=== PATIENT | male | born 1985 | race Hispanic/Latino ===

== ENCOUNTER 2020-02-04 17:46 | Emergency (ER) | payer BC, SELFPAY ==
[2020-02-04] MEDS ORDERED: ACETAMINOPHEN 500 MG TAB ONE (19:33)
[2020-02-04] MEDS ORDERED: CEFTRIAXONE/SWI 1gm 1 GM/10 ML SYR ONE (19:33)
[2020-02-04] MEDS ORDERED: NA CHLORIDE 0.9% 3,000 ML ONE (19:34)
[2020-02-04 19:46] LABS: Absolute Lymphocytes (CBC) 2.4 K/uL (0.7-4.9); Basophils % 0.5 % (0-1.3); Hematocrit 47.4 % (39.6-49.0); Lymphocytes % 11.8 % (15.3-44.8); MPV 7.8 fL (7.6-11.3); RBC Red Blood Cell Count 5.22 M/uL (4.33-5.43)
[2020-02-04 19:57] LABS: Protime INR 1.25
[2020-02-04 19:58] LABS: Urine Blood 3+ (NEG); Urine Glucose NEGATIVE (NEG); Urine Protein 2+ (NEG); Urine Specific Gravity 1.025 (1.005-1.030)
[2020-02-04 20:00] LABS: Albumin 3.8 g/dL (3.4-5.0); Bilirubin Direct 0.1 mg/dL (0-0.2); Bilirubin Total 0.8 mg/dL (0.2-1.0); Potassium 3.5 mmol/L (3.5-5.1); Protein, Total 8.2 g/dL (6.4-8.2)
[2020-02-04] MEDS ORDERED: FENTANYL CITR 100 MCG/2 ML ONE (20:01)
--- NOTE | 2020-02-04 20:03 | RAD REPORT ---
EXAM DESCRIPTION: CT - Stone Protocol - 02/04/2020 7:50 pm CLINICAL HISTORY: Abdominal pain. Dysuria COMPARISON: None. TECHNIQUE: Computed axial tomography of the abdomen pelvis was obtained without oral or IV contrast. Lack of IV and oral contrast limits evaluation of solid organs, bowel, and vessels. Coronal reformat duong images were obtained and reviewed. All CT scans are performed using dose optimization technique as appropriate and may include automated exposure control or mA/KV adjustment according to patient size. FINDINGS: A renal calculus is not seen. An ureteral calculus is not noted. A bladder calculus is not present. Stranding is present adjacent to the right ureter, bladder and seminal vesicles The liver, spleen, pancreas and adrenals appear grossly normal There is no evidence of diverticulitis. The appendix appears normal. Small umbilical hernia IMPRESSION: Negative for a genitourinary calculus Stranding adjacent to the right ureter, seminal vesicles and bladder probably indicating infection/in flammation
[2020-02-04 20:05] LABS: Urine Bacteria 20-50 /HPF (NONE SEEN); Urine Mucus 2+ /HPF (NONE SEEN); Urine RBC TNTC /HPF (NONE SEEN)
--- NOTE | 2020-02-04 21:21 | ER ---
Nurse's Notes [facility] Name: Flakito Nuñez Jr Age: 34 yrs Sex: Male : 1985 Arrival Date: 02/04/2020 Time: 17:48 Bed 7 Private MD: Diagnosis: Urinary tract infection, site not specified Presentation: 02/03 18:33 Chief complaint: Patient states: Burning with urination, urinary urgency and frequency, ca1 lower abdominal pain, testicular pain started yesterday. Got worse today. Fever started today. Did not take Tylenol or Motrin today. Coronavirus screen: Client denies travel out of the [place] in the last 14 days. fever, Client presents with at least one sign or symptom that may indicate coronavirus-19. Standard/surgical mask placed on the client. Provider contacted for isolation considerations. Ebola Screen: Patient negative for fever greater than or equal to 101.5 degrees Fahrenheit, and additional compatible Ebola Virus Disease symptoms Patient denies exposure to infectious person. Patient denies travel to an Ebola-affected area in the 21 days before illness onset. No symptoms or risks identified at this time. Initial Sepsis Screen: Does the patient meet any 2 criteria? Temp <36.0*C (96.8*F)) or > 38.3*C (100.9*F). HR > 90 bpm. Yes Does the patient have a suspected source of infection? Yes: Dysuria/Frequency/Urgency/UTI. Risk Assessment: Do you want to hurt yourself or someone else? Patient reports no desire to harm self or others. Onset of symptoms was February 03, 2020. 18:33 Method Of Arrival: Ambulatory ca1 18:33 Acuity: KEVON 2 ca1 Historical: - Allergies: 18:37 No Known Allergies; ca1 - Home Meds: 18:37 None [Active]; ca1 - PMHx: 18:37 None; ca1 - PSHx: 18:37 None; ca1 - Immunization history:: Adult Immunizations up to date, Flu vaccine is not up to date. - Social history:: Smoking status: Patient reports the use of cigarette tobacco products, smokes one pack cigarettes per day. Screenin:28 Abuse screen: Denies threats or abuse. Denies injuries from another. Nutritional rv screening: No deficits noted. Tuberculosis screening: No symptoms or risk factors identified. Fall Risk None identified. Assessment: 19:00 General: Appears in no apparent distress. Behavior is calm, cooperative, appropriate ll2 for age. Neuro: Level of Consciousness is awake, alert, obeys commands, Oriented to person, place, time, situation. Cardiovascular: Patient's skin is warm and dry. Respiratory: Airway is patent Respiratory effort is even, unlabored, Respiratory pattern is regular, symmetrical. GI: No signs and/or symptoms were reported involving the gastrointestinal system. EENT: No signs and/or symptoms were reported regarding the EENT system. Derm: Skin is intact, is healthy with good turgor, Skin is dry, Skin is pink, warm \T\ dry. Skin temperature is warm. Musculoskeletal: Circulation, motion, and sensation intact. Range of motion: intact in all extremities. 20:00 Reassessment: Patient and/or family updated on plan of care and expected duration. Pain ll2 level reassessed. Patient is alert, oriented x 3, equal unlabored respirations, skin warm/dry/pink. Pain: Complains of pain in left testicle and left lower quadrant. Vital Signs: 18:33 BP 107 / 63; Pulse 125; Resp 17 S; Temp 103.3; Pulse Ox 100% on R/A; Weight 113.4 kg ca1 (R); Height 5 ft. 10 in. (177.80 cm) (R); Pain 7/10; 19:29 BP 111 / 68; Pulse 115; Resp 23; Pulse Ox 99% on R/A; ea 21:11 BP 99 / 60; Pulse 107; Resp 20; Temp 100.4(O); Pulse Ox 100% ; rv 21:35 BP 112 / 62; Pulse 98; Resp 18; Pulse Ox 100% on R/A; ea 18:33 Body Mass Index 35.87 (113.40 kg, 177.80 cm) ca1 ED Course: 17:48 Patient arrived in ED. ag5 18:37 Triage completed. ca1 18:37 Arm band placed on right wrist. ca1 18:50 Talat Castillo PA is PHCP. cp 18:50 Julian Leonard MD is Attending Physician. cp 19:00 Inserted saline lock: 20 gauge in right antecubital area, using aseptic technique. rv Blood collected. 19:00 Initial lab(s) drawn, by ED staff, sent to lab. rv 19:16 Pal Bunch, RN is Primary Nurse. rv 19:29 Patient has correct armband on for positive identification. monitor and storage bin tender on. Pulse rv ox on. NIBP on. 19:50 CT Stone Protocol In Process Unspecified. EDMS 21:13 US Scrotum Testicles In Process Unspecified. EDMS 21:22 No provider procedures requiring assistance completed. rv 21:37 IV discontinued, intact, bleeding controlled, No redness/swelling at site. Pressure ll2 dressing applied. Administered Medications: 19:23 Drug: Acetaminophen 1000 mg Route: PO; rv 21:21 Follow up: Response: Temperature is decreased rv 19:23 Drug: NS 0.9% (30 ml/kg) 30 ml/kg Route: IV; Rate: bolus; Site: right antecubital; rv 19:42 Drug: Rocephin - (cefTRIAXone) 1 grams Route: IVPB; Infused Over: 30 mins; Site: right rv antecubital; 21:21 Follow up: Response: No adverse reaction; IV Status: Completed infusion rv 20:07 Drug: fentaNYL (PF) 25 mcg Route: IVP; Site: right antecubital; rv 21:20 Follow up: Response: No adverse reaction; Marked relief of symptoms; RASS: Alert and rv Calm (0) 21:19 Drug: Ibuprofen 800 mg Route: PO; rv 21:36 Follow up: Response: No adverse reaction ll2 21:19 Drug: LevaQUIN 750 mg Route: PO; rv 21:36 Follow up: Response: No adverse reaction ll2 Outcome: 21:20 Discharge ordered by . cp 21:37 Discharged to home ambulatory. ll2 21:37 Condition: stable 21:37 Discharge instructions given to patient, Instructed on discharge instructions, follow up and referral plans. medication usage, Demonstrated understanding of instructions, follow-up care, medications, Prescriptions given X 2. 21:37 Patient left the ED. ll2 Addendum: 02/07/2020 07:23 Addendum: Culture Results: Positive urine culture. No further action required. Bacteria e b sensitive to prescribed antibiotic. 02/08/2020 11:54 Addendum: COVID-19 Result: Negative result given to RN to notify pt. Notified pt of i w negative COVID 19 swab results. Pt advised that even with a negative test result they should remain in isolation until symptom free for 3 days without medication. Pt also advised to return to the ED for worsening symptoms. Signatures: Dispatcher [employer] EDCaterina Bay, RN RN Talat Rangel PA PA cp Antunez, Elena, RN RN Geneva Velez Ronaldo RN RN rv Actee, Jen RN RN Zach Nichols ag5 Chyna Reyna RN RN ll2
--- NOTE | 2020-02-04 21:21 | EDPHYS ---
Physician Documentation [facility] Name: Flakito Nuñez Jr Age: 34 yrs Sex: Male : 1985 Arrival Date: 02/04/2020 Time: 17:48 Bed 7 Private MD: ED Physician Julian Leonard HPI: 02/03 18:55 This 34 yrs old Male presents to ER via Ambulatory with complaints of Urinary cp Problem. 18:55 The patient presents with scrotal pain, of the left side, urinary symptoms, dysuria. cp Onset: The symptoms/episode began/occurred yesterday, and became worse today. 18:55 Associated signs and symptoms: Pertinent positives: abdominal pain, fever, hematuria, cp Pertinent negatives: constipation, diarrhea, vomiting. Severity of symptoms: in the emergency department the symptoms are unchanged, despite home interventions. Historical: - Allergies: 18:37 No Known Allergies; ca1 - Home Meds: 18:37 None [Active]; ca1 - PMHx: 18:37 None; ca1 - PSHx: 18:37 None; ca1 - Immunization history:: Adult Immunizations up to date, Flu vaccine is not up to date. - Social history:: Smoking status: Patient reports the use of cigarette tobacco products, smokes one pack cigarettes per day. ROS: 19:00 Constitutional: Positive for fever, Negative for poor PO intake. cp 19:00 Abdomen/GI: Positive for abdominal pain, Negative for vomiting, diarrhea, constipation. 19:00 : Positive for urinary symptoms, hematuria, burning with urination, testicular pain Negative for flank pain. 19:00 Eyes: Negative for injury, pain, redness, and discharge. cp 19:00 ENT: Negative for ear pain, sore throat, difficulty swallowing, difficulty handling secretions. 19:00 Respiratory: Negative for cough, shortness of breath, wheezing. 19:00 Back: Negative for radiated pain. 19:00 Skin: Negative for rash. 19:00 Neuro: Negative for altered mental status, headache, weakness. 19:00 All other systems are negative. Exam: 19:05 Constitutional: The patient appears in no acute distress, alert, awake, non-toxic, well cp developed, well nourished, febrile. 19:05 Head/Face: Normocephalic, atraumatic. cp 19:05 Eyes: Periorbital structures: appear normal, Conjunctiva: normal, no exudate, no injection, Sclera: no appreciated abnormality, Lids and lashes: appear normal, bilaterally. 19:05 ENT: External ear(s): are unremarkable, Nose: is normal, Mouth: Lips: moist, Oral mucosa: moist, Posterior pharynx: Airway: no evidence of obstruction, patent. 19:05 Neck: ROM/movement: is normal, is supple, no meningismus, no nuchal rigidity. 19:05 Chest/axilla: Inspection: normal. 19:05 Cardiovascular: Rate: tachycardic, Rhythm: regular. 19:05 Respiratory: the patient does not display signs of respiratory distress, Respirations: normal, no use of accessory muscles, no retractions, labored breathing, is not present. 19:05 Abdomen/GI: Inspection: abdomen appears normal, Bowel sounds: active, all quadrants, Palpation: soft, in all quadrants, mild abdominal tenderness, in the left lower quadrant, rebound tenderness, is not appreciated, involuntary guarding, is not appreciated. 19:05 Back: CVA tenderness, is absent. 19:05 : Male external genitalia: Patient is not circumisioned. swelling: is not appreciated, tenderness, of the left testicle is noted, of the epididymis area, that is moderate. 19:05 Neuro: Orientation: to person, place \T\ time. Mentation: is normal, Motor: moves all fours, strength is normal, Gait: is steady, at a normal pace, without difficulty. 19:30 ECG was reviewed by the Attending Physician. Vital Signs: 18:33 BP 107 / 63; Pulse 125; Resp 17 S; Temp 103.3; Pulse Ox 100% on R/A; Weight 113.4 kg ca1 (R); Height 5 ft. 10 in. (177.80 cm) (R); Pain 7/10; 19:29 BP 111 / 68; Pulse 115; Resp 23; Pulse Ox 99% on R/A; ea 21:11 BP 99 / 60; Pulse 107; Resp 20; Temp 100.4(O); Pulse Ox 100% ; rv 21:35 BP 112 / 62; Pulse 98; Resp 18; Pulse Ox 100% on R/A; ea 18:33 Body Mass Index 35.87 (113.40 kg, 177.80 cm) ca1 MDM: 18:57 Patient medically screened. cp 19:00 Differential diagnosis: appendicitis, UTI, urinary retention, prostatitis, urethritis, cp kidney stone. 21:20 Data reviewed: vital signs, nurses notes, lab test result(s), EKG, radiologic studies, cp CT scan, ultrasound. 21:20 Test interpretation: by ED physician or midlevel provider: ECG. Counseling: I had a cp detailed discussion with the patient and/or guardian regarding: the historical points, exam findings, and any diagnostic results supporting the discharge/admit diagnosis, lab results, radiology results, the need for outpatient follow up, a family practitioner, to return to the emergency department if symptoms worsen or persist or if there are any questions or concerns that arise at home. Response to treatment: the patient's symptoms have markedly improved after treatment, patient is well hydrated. and as a result, I will discharge patient. ED course: VSS. Fever and pain improved. Will discharge to home for continued monitoring. 02/03 18:51 Order name: Urine Microscopic Only; Complete Time: 20:09 12/ 20:10 Interpretation: Normal except: UWBC >50; URBC TNTC; UBACT 20-50. / 18:51 Order name: Urine Culture / 18:59 Order name: Basic Metabolic Panel; Complete Time: 20:09 12/ 20:10 Interpretation: Normal except: NA 135; GLUC 140; GFR 82. 12/ 18:59 Order name: Blood Culture Adult (2) / 18:59 Order name: CBC with Diff 12/ 20:10 Interpretation: Normal except: WBC 20.0; MK% 80.3; LYM% 11.8; NEUT A 16.0; MNA 1.4. 12/03 18:59 Order name: CPK; Complete Time: 20:09 12/ 18:59 Order name: Lactate; Complete Time: 20:09 12/ 20:11 Interpretation: Within normal limits: LAC 1.0. 12/ 18:59 Order name: LFT's; Complete Time: 20:09 12/ 20:11 Interpretation: Normal except: AST 10; GLOB 4.4; A/G 0.9. 12/ 18:59 Order name: Lipase; Complete Time: 20:09 02/03 18:59 Order name: Procalcitonin; Complete Time: 21:14 cp 02/03 21:14 Interpretation: Reviewed. cp 12 18:59 Order name: Protime (+inr); Complete Time: 20:09 cp /03 19:00 Order name: COVID-19 cp 02/03 19:13 Order name: Urine Dipstick--Ancillary (enter results) 02/03 19:14 Order name: Urine Dipstick-Ancillary; Complete Time: 20:09 EDMS 02/03 20:11 Interpretation: Normal except: UBLD 3+; UPROT 2+; UESTR 3+. cp / 18:51 Order name: Urine Dipstick-Ancillary (obtain specimen); Complete Time: 19:28 cp 02/03 18:59 Order name: Accucheck; Complete Time: 19:27 cp 02/03 18:59 Order name: Cardiac monitoring; Complete Time: 19:27 cp 02/03 18:59 Order name: EKG - Nurse/Tech; Complete Time: 19:27 cp 02/03 18:59 Order name: IV Saline Lock - Large Bore; Complete Time: 19:27 cp 02/03 18:59 Order name: Labs collected and sent; Complete Time: 19:27 cp 02/03 18:59 Order name: O2 Per Protocol; Complete Time: 19:28 cp 03 19:38 Order name: US Scrotum Testicles cp / 19:38 Order name: CT Stone Protocol; Complete Time: 20:09 cp 02/03 21:29 Order name: Manual Differential EDNY 02/03 18:59 Order name: O2 Sat Monitoring; Complete Time: 19:28 cp EC:30 Rate is 111 beats/min. Rhythm is regular. WA interval is normal. QRS interval is cp normal. QT interval is normal. T waves are Inverted in lead aVR. Interpreted by me. Reviewed by me. Administered Medications: 19:23 Drug: Acetaminophen 1000 mg Route: PO; rv 21:21 Follow up: Response: Temperature is decreased rv 19:23 Drug: NS 0.9% (30 ml/kg) 30 ml/kg Route: IV; Rate: bolus; Site: right antecubital; rv 19:42 Drug: Rocephin - (cefTRIAXone) 1 grams Route: IVPB; Infused Over: 30 mins; Site: right rv antecubital; 21:21 Follow up: Response: No adverse reaction; IV Status: Completed infusion rv 20:07 Drug: fentaNYL (PF) 25 mcg Route: IVP; Site: right antecubital; rv 21:20 Follow up: Response: No adverse reaction; Marked relief of symptoms; RASS: Alert and rv Calm (0) 21:19 Drug: Ibuprofen 800 mg Route: PO; rv 21:36 Follow up: Response: No adverse reaction ll2 21:19 Drug: LevaQUIN 750 mg Route: PO; rv 21:36 Follow up: Response: No adverse reaction ll2 Disposition: 02/04 06:34 Co-signature as Attending Physician, Julian Leonard MD I agree with the assessment and kdr plan of care. Disposition: 02/04/20 21:20 Discharged to Home. Impression: Urinary tract infection, site not specified. - Condition is Stable. - Discharge Instructions: Urinary Tract Infection, Adult. - Prescriptions for Ibuprofen 800 mg Oral Tablet - take 1 tablet by ORAL route every 8 hours As needed take with food; 30 tablet. Levaquin 750 mg Oral Tablet - take 1 tablet by ORAL route once daily for 10 days start evening of 02-05-2020; 9 tablet. - Medication Reconciliation Form, Thank You Letter, Antibiotic Education, Prescription Opioid Use form. - Follow up: Private Physician; When: 1 - 2 days; Reason: Recheck today's complaints. - Problem is new. - Symptoms have improved. Signatures: Dispatcher [employer] EDJulian Law MD MD kdr Page, Corey, PA PA cp Pal Bunch RN RN rv Jen Henson RN ISIS ca1 Chyna Reyna RN RN ll2 Corrections: (The following items were deleted from the chart) 02/03 20:11 20:10 Normal except: WBC 20.0; MK% 80.3; LYM% 11.8; NEUT A 16.0. cp cp 21:37 21:20 02/04/2020 21:20 Discharged to Home. Impression: Urinary tract infection, site ll2 not specified. Condition is Stable. Forms are Medication Reconciliation Form, Thank You Letter, Antibiotic Education, Prescription Opioid Use. Follow up: Private Physician; When: 1 - 2 days; Reason: Recheck today's complaints. Problem is new. Symptoms have improved. cp
[2020-02-04 21:29] LABS: Blood Morphology Comment NOT SEEN (NOT SEEN); Platelet Estimate ADEQ
[2020-02-04] MEDS ORDERED: levoFLOXacin 750 MG TAB ONE (21:31)
--- NOTE | 2020-02-04 21:31 | RAD REPORT ---
EXAM DESCRIPTION: US - Scrotum Testicles - 02/04/2020 9:13 pm CLINICAL HISTORY: Testicular pain COMPARISON: None FINDINGS: Right testicle measures 3.1 x 1.8 x 3.3 centimeters. Echotexture is homogeneous. Normal bl ood flow Left testicle measures 3.9 x 2.1 x 2.6 centimeters. Echotexture is homogeneous. Normal blood flow The epididymides are normal in size and echotexture. Normal blood flow is seen. A 4 millimeter right spermatocele. Small right hydrocele Left varicocele IMPRESSION: Left varicocele Small right spermatocele Small right hydrocele
[2020-02-04] MEDS ORDERED: IBUPROFEN 400 MG TAB ONE (21:32)
--- NOTE | 2020-02-06 20:05 | EKG ---
Test Date: 2020-02-04 Test Time: 19:23:50 Senior Reliability Engineer: QUIANA MEASUREMENT RESULTS: Intervals: Rate: 111 AR: 130 QRSD: 90 QT: 302 QTc: 410 Taft: P: 7 AR: 130 QRS: 11 T: 31 INTERPRETIVE STATEMENTS: Sinus tachycardia Otherwise normal ECG Compared to ECG 05/26/2018 14:42:11 Sinus rhythm no longer present Electronically Signed On 02-06-20 20:01:55 TRAM DRIVER by Kenn Lewis
== END 2020-02-04 21:37 | disposition home or self-care (01) ==
LOC: ER 17:46
DX: N39.0 Urinary tract infection, site not specified (principal); F17.210 Nicotine dependence, cigarettes, uncomplicated; Z20.828 Contact with and (suspected) exposure to other viral communicable diseases
CPT/HCPCS: 96365; 93005; 87040 ×2; 87088; 85025; 87086; 80048; 36415; 82550; 85610; 80076; 83605; 87077; 87186; 83690; 84145; 76377; 74176; 76870; 96375; 99284; 96366; U0002; J3010; J0696; J7030; 81003; 81015